=== PATIENT | male | born 1965 | race Caucasian/White ===

== ENCOUNTER 2016-06-02 22:59 | Emergency (ER) | payer SELFPAY ==
[~2016-06-02] VITALS: Ht 175.3 cm; Wt 77.0 kg
[2016-06-02 23:48] LABS: ASPARTATE AMINO TRANSFERASE 37 U/L (15-37); BLOOD UREA NITROGEN 18 mg/dL (7-18)
[2016-06-02 23:54] LABS: IS PT STATUS REG ER OR PRE ER? YES
[2016-06-03 00:14] VITALS: BP 169/105
== END 2016-06-03 00:27 | disposition home or self-care (01) ==
LOC: ED 23:59
DX: R06.00 Dyspnea, unspecified (principal); R10.84 Generalized abdominal pain; I10 Essential (primary) hypertension; F15.10 Other stimulant abuse, uncomplicated
CPT/HCPCS: 36415; 71010; 80053; 83690; 84484; 85025; 93005

== ENCOUNTER 2017-07-03 14:13 | Inpatient (IN) | payer MEDICAID, OTHER ==
[~2017-07-03] VITALS: Ht 175.3 cm; Wt 85.0 kg
[2017-07-03] MEDS ORDERED: ALBUTEROL SULFATE 2.5 MG/3 ML NPPB ONE (15:00)
[2017-07-03] MEDS ORDERED: SODIUM CHLORIDE FLUSH 10ML SYR IVF ONE (15:00)
[2017-07-03] MEDS ORDERED: ALBUTEROL SULFATE 2.5 MG/3 ML ONE (15:05)
[2017-07-03 15:21] LABS: BASOPHILS # (AUTO) 0.03 x10^3/uL (0-0.1); BASOPHILS % (AUTO) 0 % (0-1); EOSINOPHILS # (AUTO) 0.24 x10^3/uL (0-0.4); EOSINOPHILS % (AUTO) 2 % (1-7); LYMPHOCYTES # (AUTO) 1.07 x10^3/uL (1-3.4); LYMPHOCYTES % (AUTO) 9 % (22-44); MD NO; MEAN CORPUSCULAR HEMOGLOBIN 31.1 pg (27.5-34.5); MEAN CORPUSCULAR HGB CONC 33.7 g/dL (33.2-36.2); MEAN CORPUSCULAR VOLUME 92.5 fL (81-97); MEAN PLATELET VOLUME 8.5 fL (7.4-10.4); MONOCYTES # (AUTO) 0.86 x10^3/uL (0.2-0.8); MONOCYTES % (AUTO) 7 % (2-9); NEUTROPHILS # (AUTO) 9.75 x10^3/uL (1.8-6.8); NEUTROPHILS % (AUTO) 82 % (42-75); PLATELET COUNT 311 x10^3/uL (130-400); RED BLOOD COUNT 4.73 x10^6/uL (4.38-5.82); RED CELL DISTRIBUTION WIDTH 14.3 % (9.4-14.8)
[2017-07-03 15:24] LABS: INTERNATIONAL NORMALIZED RATIO 0.95 (0.93-1.1); PROTHROMBIN TIME 9.9 Seconds (9.6-11.5)
[2017-07-03 15:27] LABS: ALANINE AMINOTRANSFERASE 79 U/L (12-78); ALBUMIN 3.6 g/dL (3.4-5.0); ANION GAP 11 mmol/L (5-15); CHLORIDE 109 mmol/L (98-107); CREATININE 1.73 mg/dL (0.7-1.3)
[2017-07-03 15:29] LABS: ALKALINE PHOSPHATASE 116 U/L (45-117); BILIRUBIN,TOTAL 0.3 mg/dL (0.2-1.0); TOTAL PROTEIN 7.9 g/dL (6.4-8.2)
[2017-07-03 15:37] LABS: TROPONIN I < 0.015 ng/mL (0.000-0.045)
[2017-07-03] MEDS ORDERED: OMNIPAQUE 350 MG/ML, 100ML BOTTLE ONE (16:00)
[2017-07-03] MEDS ORDERED: SODIUM CHLORIDE 0.9% 1,000 ML IV ONE (17:12)
[2017-07-03 17:14] LABS: MICROSCOPIC AUTO
[2017-07-03 17:17] LABS: CULTURE INDICATED? YES
[2017-07-03] MEDS ORDERED: CEFTRIAXONE PMX 1GM/50ML 50 ML ONE (17:30)
[2017-07-03] MEDS ORDERED: LABETALOL 5MG/ML, 20ML IVPush ONE (17:30)
[2017-07-03] MEDS ORDERED: ONDANSETRON ODT 4 MG PO PRN (17:30)
[2017-07-03] MEDS ORDERED: LABETALOL 5MG/ML, 20ML IVPush PRN (17:30)
[2017-07-03] MEDS ORDERED: LABETALOL 5MG/ML, 20ML ONE (17:30)
[2017-07-03] MEDS ORDERED: ONDANSETRON 2MG/ML, 2ML IVPush PRN (17:30)
[2017-07-03] MEDS ORDERED: CEFTRIAXONE PMX 1GM/50ML 50 ML IV ONE (17:30)
[2017-07-03] MEDS ORDERED: TAMSULOSIN 0.4 MG CAP.ER.24H PO ONE (18:00)
[2017-07-03] MEDS: SODIUM CHLORIDE 0.9% 1,000 ML IV SCH (18:28)
[2017-07-03] MEDS ORDERED: NICOTINE 14MG/24 HR PATCH.TD24 TD ONE (18:30)
[2017-07-03 19:55] VITALS: BP_SYST 155; BP_SYST 177; BP_DIAS 125; BP_DIAS 98
[2017-07-03 20:00] VITALS: BP 157/98
[2017-07-03] MEDS: methylPREDNISolone SOD SUCC 125 MG/2 ML IVPush SCH (21:12)
[2017-07-03] MEDS: AMLODIPINE 5 MG TABLET PO SCH (21:13)
[2017-07-03] MEDS: ACETAMINOPHEN 325 MG TABLET PO PRN (21:23)
[2017-07-03] MEDS: CHLORTHALIDONE 25 MG TABLET PO SCH (21:23)
[2017-07-03 21:44] LABS: FREE T4 (FREE THYROXINE) 1.08 ng/dL (0.76-1.46); TROPONIN I < 0.015 ng/mL (0.000-0.045)
[2017-07-04 01:00] VITALS: BP 153/97
[2017-07-04 01:18] LABS: CULTURE INDICATED? YES; MICROSCOPIC INDICATED
[2017-07-04 03:34] LABS: ALBUMIN 3.1 g/dL (3.4-5.0); ANION GAP 8 mmol/L (5-15); CALCIUM 8.6 mg/dL (8.5-10.1); CHLORIDE 108 mmol/L (98-107)
[2017-07-04 03:38] LABS: ALANINE AMINOTRANSFERASE 67 U/L (12-78); ALKALINE PHOSPHATASE 106 U/L (45-117); BILIRUBIN,TOTAL 0.3 mg/dL (0.2-1.0); CHOL/HDL RATIO 5.1; CHOLESTEROL, TOTAL 198 mg/dL (140-239); CREATININE 1.84 mg/dL (0.7-1.3); HDL CHOL % 20 % (26-37); HDL CHOLESTEROL (DIRECT) 39 mg/dL (40-60); TOTAL PROTEIN 7.2 g/dL (6.4-8.2); TRIGLYCERIDES 71 mg/dL (50-200); VLDL CHOLESTEROL 14 mg/dL (0-25)
[2017-07-04 03:39] LABS: LDL CHOLESTEROL,CALCULATED 145 mg/dL (54-169); LDL/HDL RATIO 3.7 (0.5-3.0); TROPONIN I < 0.015 ng/mL (0.000-0.045)
[2017-07-04 03:44] LABS: THYROID STIMULATING HORMONE 0.799 mIU/L (0.358-3.740)
[2017-07-04] MEDS: methylPREDNISolone SOD SUCC 125 MG/2 ML IVPush SCH ×4 (05:04→23:19)
[2017-07-04] MEDS: SODIUM CHLORIDE 0.9% 1,000 ML IV SCH (05:05)
[2017-07-04 08:30] VITALS: BP 119/86
[2017-07-04] MEDS: CHLORTHALIDONE 25 MG TABLET PO SCH (09:29)
[2017-07-04] MEDS: AMLODIPINE 5 MG TABLET PO SCH ×2 (09:29→20:45)
[2017-07-04 14:30] VITALS: BP 150/93
[2017-07-04 16:19] LABS: CREATININE,URINE RANDOM 90.5 mg/dL
[2017-07-04] MEDS: CEFTRIAXONE PMX 2GM/50ML 50 ML IV SCH (18:43)
[2017-07-04 19:45] VITALS: BP 148/82
[2017-07-04] MEDS: CALCIUM CARBONATE 500 MG TAB.CHEW PO PRN (20:45)
[2017-07-04 20:47] VITALS: BP 148/93
[2017-07-04] MEDS: ACETAMINOPHEN 325 MG TABLET PO PRN (23:20)
[2017-07-05 01:17] VITALS: BP 151/84
[2017-07-05] MEDS: methylPREDNISolone SOD SUCC 125 MG/2 ML IVPush SCH (04:13)
[2017-07-05 04:47] LABS: MEAN CORPUSCULAR HEMOGLOBIN 30.7 pg (27.5-34.5); MEAN CORPUSCULAR HGB CONC 33.3 g/dL (33.2-36.2); MEAN CORPUSCULAR VOLUME 92.2 fL (81-97); MEAN PLATELET VOLUME 8.6 fL (7.4-10.4); PLATELET COUNT 368 x10^3/uL (130-400); RED BLOOD COUNT 4.73 x10^6/uL (4.38-5.82); RED CELL DISTRIBUTION WIDTH 14.6 % (9.4-14.8)
[2017-07-05 04:49] LABS: ALBUMIN 3.2 g/dL (3.4-5.0); ANION GAP 9 mmol/L (5-15); CALCIUM 9.3 mg/dL (8.5-10.1); CHLORIDE 105 mmol/L (98-107); CREATININE 1.47 mg/dL (0.7-1.3)
[2017-07-05 05:51] LABS: BASOPHILS % (AUTO) 0 % (0-1); EOSINOPHILS % (AUTO) 0 % (1-7); LYMPHOCYTES # (AUTO) 0.78 x10^3/uL (1-3.4); LYMPHOCYTES % (AUTO) 3 % (22-44); MD SCAN; MONOCYTES # (AUTO) 0.48 x10^3/uL (0.2-0.8); MONOCYTES % (AUTO) 2 % (2-9); NEUTROPHILS # (AUTO) 25.29 x10^3/uL (1.8-6.8); NEUTROPHILS % (AUTO) 95 % (42-75)
[2017-07-05] MEDS ORDERED: MIDAZOLAM 1 MG/ML, 2ML ONE (07:43)
[2017-07-05] MEDS ORDERED: FENTANYL PF 100 MCG/2ML ONE (07:43)
[2017-07-05] MEDS ORDERED: PHENYLEPHRINE 10 MG/ML ONE (07:45)
[2017-07-05] MEDS ORDERED: PROPOFOL 10 MG/ML, 20ML ONE (07:47)
[2017-07-05 08:00] VITALS: BP 120/75
[2017-07-05] MEDS ORDERED: METOPROLOL 1 MG/ML, 5ML ONE (08:08)
[2017-07-05] MEDS ORDERED: DEXAMETHASONE 4 MG/ML, 1ML ONE ×2 (08:18)
[2017-07-05] MEDS ORDERED: hydrALAzine 20 MG/ML, 1ML IV PRN (08:30)
[2017-07-05] MEDS ORDERED: FENTANYL PF 100 MCG/2ML IV PRN (08:30)
[2017-07-05] MEDS ORDERED: LABETALOL 5MG/ML, 20ML IV PRN (08:30)
[2017-07-05] MEDS ORDERED: ACETAMINOPHEN 325 MG TABLET PO PRN (08:30)
[2017-07-05] MEDS ORDERED: OXYcodone 5 MG/5 ML ORAL.SOL UDC PO PRN (08:30)
[2017-07-05] MEDS ORDERED: PROMETHAZINE 25 MG/ML, 1ML IV PRN (08:30)
[2017-07-05] MEDS ORDERED: MEPERIDINE/PF 25MG/0.5ML IVPush PRN (08:30)
[2017-07-05] MEDS ORDERED: morphine SULFATE 10 MG/ML, 1ML IV PRN (08:30)
[2017-07-05] MEDS ORDERED: LORazepam 2 MG/ML, 1ML IVPush PRN (08:30)
[2017-07-05] MEDS: CHLORTHALIDONE 25 MG TABLET PO SCH (10:32)
[2017-07-05] MEDS: AMLODIPINE 5 MG TABLET PO SCH ×2 (10:32→20:55)
[2017-07-05 14:13] VITALS: BP 139/81
[2017-07-05] MEDS: CEFTRIAXONE PMX 2GM/50ML 50 ML IV SCH (17:55)
[2017-07-05] MEDS: CALCIUM CARBONATE 500 MG TAB.CHEW PO PRN ×2 (18:11→22:40)
[2017-07-05 20:08] VITALS: BP 144/82
[2017-07-05] MEDS: ACETAMINOPHEN 325 MG TABLET PO PRN (22:40)
[2017-07-06 00:42] VITALS: BP_SYST 162; BP_SYST 171; BP_DIAS 100; BP_DIAS 95
[2017-07-06 05:26] LABS: MEAN CORPUSCULAR HEMOGLOBIN 30.8 pg (27.5-34.5); MEAN CORPUSCULAR HGB CONC 33.1 g/dL (33.2-36.2); MEAN CORPUSCULAR VOLUME 92.8 fL (81-97); MEAN PLATELET VOLUME 8.6 fL (7.4-10.4); PLATELET COUNT 375 x10^3/uL (130-400); RED BLOOD COUNT 4.91 x10^6/uL (4.38-5.82); RED CELL DISTRIBUTION WIDTH 14.6 % (9.4-14.8)
[2017-07-06 05:41] LABS: CALCIUM 8.5 mg/dL (8.5-10.1); CHLORIDE 105 mmol/L (98-107)
[2017-07-06 05:44] LABS: ALBUMIN 2.8 g/dL (3.4-5.0); ANION GAP 9 mmol/L (5-15); CREATININE 0.83 mg/dL (0.7-1.3)
[2017-07-06 07:05] LABS: BASOPHILS # (AUTO) 0.03 x10^3/uL (0-0.1); BASOPHILS % (AUTO) 0 % (0-1); EOSINOPHILS % (AUTO) 0 % (1-7); LYMPHOCYTES % (AUTO) 5 % (22-44); MONOCYTES # (AUTO) 1.69 x10^3/uL (0.2-0.8); MONOCYTES % (AUTO) 6 % (2-9); NEUTROPHILS # (AUTO) 26.09 x10^3/uL (1.8-6.8); NEUTROPHILS % (AUTO) 90 % (42-75)
[2017-07-06 07:07] LABS: MD SCAN
[2017-07-06] MEDS: AMLODIPINE 5 MG TABLET PO SCH ×2 (08:23→22:09)
[2017-07-06] MEDS: CHLORTHALIDONE 25 MG TABLET PO SCH (08:23)
[2017-07-06 08:30] VITALS: BP 154/89
[2017-07-06] MEDS ORDERED: REGADENOSON 0.4 MG/5 ML SYRINGE ONE (09:01)
[2017-07-06 14:30] VITALS: BP 147/99
[2017-07-06] MEDS: CEFTRIAXONE PMX 2GM/50ML 50 ML IV SCH (17:14)
[2017-07-06 17:59] LABS: MEAN CORPUSCULAR HEMOGLOBIN 30.7 pg (27.5-34.5); MEAN CORPUSCULAR HGB CONC 33.2 g/dL (33.2-36.2); MEAN CORPUSCULAR VOLUME 92.5 fL (81-97); MEAN PLATELET VOLUME 8.5 fL (7.4-10.4); PLATELET COUNT 409 x10^3/uL (130-400); RED BLOOD COUNT 5.24 x10^6/uL (4.38-5.82); RED CELL DISTRIBUTION WIDTH 14.4 % (9.4-14.8)
[2017-07-06] MEDS: CALCIUM CARBONATE 500 MG TAB.CHEW PO PRN ×2 (18:39→22:13)
[2017-07-06 18:44] LABS: BASOPHILS # (AUTO) 0.04 x10^3/uL (0-0.1); BASOPHILS % (AUTO) 0 % (0-1); EOSINOPHILS % (AUTO) 0 % (1-7); LYMPHOCYTES # (AUTO) 1.12 x10^3/uL (1-3.4); LYMPHOCYTES % (AUTO) 4 % (22-44); MD SCAN; MONOCYTES # (AUTO) 0.91 x10^3/uL (0.2-0.8); MONOCYTES % (AUTO) 3 % (2-9); NEUTROPHILS # (AUTO) 24.46 x10^3/uL (1.8-6.8); NEUTROPHILS % (AUTO) 92 % (42-75)
[2017-07-06 21:30] VITALS: BP 155/101
[2017-07-06 22:04] VITALS: BP 160/105
[2017-07-07 02:15] VITALS: BP 136/87
[2017-07-07 05:01] LABS: MEAN CORPUSCULAR HEMOGLOBIN 30.8 pg (27.5-34.5); MEAN CORPUSCULAR HGB CONC 33.3 g/dL (33.2-36.2); MEAN CORPUSCULAR VOLUME 92.5 fL (81-97); MEAN PLATELET VOLUME 8.4 fL (7.4-10.4); PLATELET COUNT 356 x10^3/uL (130-400); RED CELL DISTRIBUTION WIDTH 14.4 % (9.4-14.8)
[2017-07-07 05:11] LABS: ALBUMIN 3.4 g/dL (3.4-5.0); ANION GAP 8 mmol/L (5-15); CALCIUM 9.8 mg/dL (8.5-10.1); CHLORIDE 100 mmol/L (98-107); CREATININE 1.66 mg/dL (0.7-1.3)
[2017-07-07 05:46] LABS: BASOPHILS # (AUTO) 0.05 x10^3/uL (0-0.1); BASOPHILS % (AUTO) 0 % (0-1); EOSINOPHILS # (AUTO) 0.01 x10^3/uL (0-0.4); EOSINOPHILS % (AUTO) 0 % (1-7); LYMPHOCYTES # (AUTO) 2.11 x10^3/uL (1-3.4); LYMPHOCYTES % (AUTO) 10 % (22-44); MD SCAN; MONOCYTES # (AUTO) 1.73 x10^3/uL (0.2-0.8); MONOCYTES % (AUTO) 8 % (2-9); NEUTROPHILS # (AUTO) 16.66 x10^3/uL (1.8-6.8); NEUTROPHILS % (AUTO) 81 % (42-75)
[2017-07-07 08:24] VITALS: BP 151/102
[2017-07-07] MEDS: CHLORTHALIDONE 25 MG TABLET PO SCH (09:02)
[2017-07-07] MEDS: AMLODIPINE 5 MG TABLET PO SCH ×2 (09:02→20:14)
[2017-07-07] MEDS ORDERED: SODIUM CHLORIDE 0.9% 1,000 ML IV SCH (09:30)
[2017-07-07] MEDS ORDERED: SODIUM CHLORIDE 0.9%, 500ML IVBOLUS ONE (09:30)
[2017-07-07 13:27] VITALS: BP 144/101
[2017-07-07] MEDS ORDERED: SODIUM CHLORIDE 0.9% 1,000ML IVBOLUS ONE (15:00)
[2017-07-07 16:40] LABS: ANION GAP 9 mmol/L (5-15); CALCIUM 8.5 mg/dL (8.5-10.1); CHLORIDE 103 mmol/L (98-107); CREATININE 1.63 mg/dL (0.7-1.3)
[2017-07-07] MEDS: SODIUM CHLORIDE 0.9% 1,000 ML IV SCH (18:00)
[2017-07-07] MEDS: METOPROLOL TARTRATE 25 MG TABLET PO SCH (18:00)
[2017-07-07] MEDS: CEFTRIAXONE PMX 2GM/50ML 50 ML IV SCH (18:00)
[2017-07-07] MEDS: ACETAMINOPHEN 325 MG TABLET PO PRN (20:08)
[2017-07-07 20:15] VITALS: BP 153/99
[2017-07-07] MEDS: CALCIUM CARBONATE 500 MG TAB.CHEW PO PRN (20:18)
[2017-07-08 01:31] VITALS: BP 160/105
[2017-07-08] MEDS: SODIUM CHLORIDE 0.9% 1,000 ML IV SCH (01:53)
[2017-07-08 05:41] LABS: BASOPHILS # (AUTO) 0.03 x10^3/uL (0-0.1); BASOPHILS % (AUTO) 0 % (0-1); EOSINOPHILS # (AUTO) 0.14 x10^3/uL (0-0.4); EOSINOPHILS % (AUTO) 1 % (1-7); LYMPHOCYTES # (AUTO) 2.26 x10^3/uL (1-3.4); LYMPHOCYTES % (AUTO) 17 % (22-44); MD NO; MEAN CORPUSCULAR HEMOGLOBIN 31.2 pg (27.5-34.5); MEAN CORPUSCULAR HGB CONC 33.9 g/dL (33.2-36.2); MEAN CORPUSCULAR VOLUME 92.1 fL (81-97); MONOCYTES # (AUTO) 1.42 x10^3/uL (0.2-0.8); MONOCYTES % (AUTO) 10 % (2-9); NEUTROPHILS # (AUTO) 9.89 x10^3/uL (1.8-6.8); NEUTROPHILS % (AUTO) 72 % (42-75); PLATELET COUNT 341 x10^3/uL (130-400); RED BLOOD COUNT 5.29 x10^6/uL (4.38-5.82); RED CELL DISTRIBUTION WIDTH 14.5 % (9.4-14.8)
[2017-07-08 06:02] LABS: ANION GAP 9 mmol/L (5-15); CALCIUM 8.1 mg/dL (8.5-10.1); CHLORIDE 102 mmol/L (98-107)
[2017-07-08 06:05] LABS: ALANINE AMINOTRANSFERASE 75 U/L (12-78); ALKALINE PHOSPHATASE 93 U/L (45-117); BILIRUBIN,TOTAL 0.4 mg/dL (0.2-1.0); CREATININE 1.66 mg/dL (0.7-1.3); TOTAL PROTEIN 6.8 g/dL (6.4-8.2)
[2017-07-08] MEDS: METOPROLOL TARTRATE 25 MG TABLET PO SCH (06:41)
[2017-07-08 06:54] VITALS: BP 138/90
[2017-07-08] MEDS ORDERED: AMLO5TAB2 PO (07:46)
[2017-07-08] MEDS ORDERED: CEFD300C37 PO (07:46)
[2017-07-08] MEDS ORDERED: METO25TA35 PO (07:46)
[2017-07-08] MEDS ORDERED: CHLO25TA PO (07:46)
[2017-07-08] MEDS ORDERED: PRED10TA PO (07:48)
[2017-07-08] MEDS: AMLODIPINE 5 MG TABLET PO SCH (09:17)
[2017-07-08] MEDS: CHLORTHALIDONE 25 MG TABLET PO SCH (09:17)
== END 2017-07-08 09:50 | disposition home or self-care (01) | DRG 854 ==
LOC: ED 17:09 → EDIP 17:10 → ED 17:33 → 5SO 19:18 → 4EST 07-07 18:10 → DCLOUNGE 07-08 09:41
PROVIDERS: ADMIT Internal Medicine Pulmonary Disease; ATTEND Internal Medicine Pulmonary Disease
PROC: 0TBB8ZX Excision of Bladder, Via Natural or Artificial Opening Endoscopic, Diagnostic (ICD-10-PCS; principal; 2017-07-05 08:00)
DX: A41.9 Sepsis, unspecified organism (principal); I50.30 Unspecified diastolic (congestive) heart failure; I11.0 Hypertensive heart disease with heart failure; N19 Unspecified kidney failure; J44.1 Chronic obstructive pulmonary disease with (acute) exacerbation; F17.210 Nicotine dependence, cigarettes, uncomplicated; R31.0 Gross hematuria; N40.0 Benign prostatic hyperplasia without lower urinary tract symptoms; N30.21 Other chronic cystitis with hematuria; M19.90 Unspecified osteoarthritis, unspecified site; F12.90 Cannabis use, unspecified, uncomplicated; N28.89 Other specified disorders of kidney and ureter; K40.90 Unilateral inguinal hernia, without obstruction or gangrene, not specified as recurrent; N28.1 Cyst of kidney, acquired; R74.0 Nonspecific elevation of levels of transaminase and lactic acid dehydrogenase [LDH]; Z80.8 Family history of malignant neoplasm of other organs or systems; Z79.899 Other long term (current) drug therapy; Z79.1 Long term (current) use of non-steroidal anti-inflammatories (NSAID); Z79.2 Long term (current) use of antibiotics
CPT/HCPCS: 36415; 71045; 74177; 76700; 78452; 80048; 80053; 80061; 81001; 82040; 82570; 83605; 83735; 84100; 84145; 84156; 84300; 84439; 84443; 84484; 85025; 85610; 85730; 87040; 87077; 87086; 87186; 88112; 88305; 93005; 93017; 93306; 93970; 94640; 96365; 96375; G0103; J0696; J1100; J2250; J2704; J2785; J3010; J7613; Q0162; Q9967; A9502; C9898; J2370; J2930; J7030; J7040; J7512